=== PATIENT | female | born 1940 | race Caucasian/White ===

== ENCOUNTER 2019-03-07 12:06 | Outpatient (CLI) | payer MEDICARE ==
--- NOTE | 2019-03-07 13:47 | CT ---
CT thoracic spine. HISTORY: Back pain. Axial images are obtained with sagittal and coronal reconstructions. The patient has had previous T12-L1 and L2 laminectomies. T7-8 level dorsal column stimulators in place. No evidence of acute bony lesion seen. IMPRESSION: no significant evidence of thoracic spine acute abnormality seen. Postsurgical changes se en.
== END 2019-03-07 12:07 | disposition home or self-care (01) ==
LOC: BICCT 12:06
PROVIDERS: ATTEND Nurse Practitioner Family
DX: M54.6 Pain in thoracic spine (principal); Z98.890 Other specified postprocedural states
CPT/HCPCS: 72128